=== PATIENT | female | born 1985 ===

== ENCOUNTER → 2017-03-11 | Emergency (ER) | payer OTHER ==
[~2017-03-11] VITALS: Ht 165.1 cm; Wt 68.0 kg
[~2017-03-11] MED LIST: KETO10TA2 PO; TAMS0.4C PO
== END | disposition home or self-care (01) ==
LOC: ER 21:39
DX: N20.0 Calculus of kidney (principal)

== ENCOUNTER 2017-03-16 10:51 | Outpatient (CLI) | payer OTHER | END 2017-03-16 15:22 | disposition home or self-care (01) | LOC: SONOGRAMA 10:51 | DX: N20.0 Calculus of kidney (principal) ==

== ENCOUNTER → 2017-03-31 | Outpatient (CLI) | payer OTHER | END | disposition home or self-care (01) | LOC: SONOGRAMA 13:43 | DX: N28.89 Other specified disorders of kidney and ureter (principal) ==

== ENCOUNTER → 2017-08-23 | Emergency (ER) | payer OTHER ==
[~2017-08-23] VITALS: Ht 157.5 cm; Wt 65.8 kg
== END | disposition home or self-care (01) ==
LOC: ER 19:15
DX: O21.0 Mild hyperemesis gravidarum (principal); O26.891 Other specified pregnancy related conditions, first trimester; R51 Headache; M62.838 Other muscle spasm; Z34.81 Encounter for supervision of other normal pregnancy, first trimester

== ENCOUNTER 2018-02-06 11:49 | Inpatient (IN) | payer OTHER ==
[~2018-02-06] VITALS: Ht 157.5 cm; Wt 3.2 kg
[2018-02-13] MEDS ORDERED: PRENATAL 19 TA1 EACH PO (12:39)
== END 2018-02-23 14:16 | disposition home or self-care (01) | DRG 788 ==
LOC: LDR 02-20 10:01 → O/R 02-20 10:01 → SURG-SUITE 02-20 15:32 → LDR 02-28 10:45
PROVIDERS: Obstetrics & Gynecology
PROC: 4A1HXCZ Monitoring of Products of Conception, Cardiac Rate, External Approach (ICD-10-PCS; 2018-02-20)
PROC: 4A033R1 Measurement of Arterial Saturation, Peripheral, Percutaneous Approach (ICD-10-PCS; 2018-02-20)
PROC: 10D00Z1 Extraction of Products of Conception, Low, Open Approach (ICD-10-PCS; principal; 2018-02-20 15:15)
DX: O34.211 Maternal care for low transverse scar from previous cesarean delivery (principal); O75.82 Onset (spontaneous) of labor after 37 completed weeks of gestation but before 39 completed weeks gestation, with delivery by (planned) cesarean section; Z3A.38 38 weeks gestation of pregnancy; Z37.0 Single live birth; Z22.330 Carrier of Group B streptococcus